=== PATIENT | female | born 1950 | race American Indian/Alaskan Native ===

== ENCOUNTER 2017-12-20 09:43 | Emergency (ER) | payer OTHER, MEDICARE ==
[2017-12-20 10:11] VITALS: BP 136/81
--- NOTE | 2017-12-20 11:49 | Emergency Department Report ---
Chief Complaint: Abdominal Pain Stated Complaint: ABD PAIN Time Seen by Provider: 12/20/17 11:42 - HPI History of Present Illness: 66-year-old female presents to the emergency department, sent in by her PCP Dr. Javier Argueta, to get an ultrasound done of her upper abdomen. The patient is having a few days of some abdominal pain that is worse towards the epigastrium. She had a urinalysis done yesterday and an EKG, which I saw and was read as normal. She is supposed to have blood work done on . She was not written for a prescription or order to get an outpatient or sound done but instead was told to come to the emergency department. No past medical history. No recent travel or sick contacts at home. - ROS Review of Systems: Positive for abdominal pain Negative for nausea, vomiting, fever, dysuria - Exam Vital Signs: Vital Signs 12/20/17 10:07 Temperature 98.4 F Pulse Rate 94 H Respiratory 18 Rate Blood Pressure 136/81 O2 Sat by Pulse 99 Oximetry Physical Exam: There is some reproducible epigastric tenderness to palpation. Otherwise abdomen is soft and nontoxic appearing. No guarding. MSE screening note: Focused history and physical exam performed. Due to findings the following was ordered: I have ordered a CBC, lipase, CMP and an upper abdominal ultrasound to be done. ED Disposition for MSE Condition: Stable Instructions: Abdominal Pain (ED) Referrals: PRIMARY CARE, [Primary Care Provider] - 3-5 Days
[2017-12-20 12:56] LABS: Basophils % (Auto) 0.7 % (0.0-1.8); Eosinophils # (Auto) 0.1 K/mm3 (0.0-0.4); Eosinophils % (Auto) 0.9 % (0.0-4.3); Hematocrit 42.3 % (30.3-42.9); Hemoglobin 14.3 gm/dl (10.1-14.3); Lymphocytes # (Auto) 1.9 K/mm3 (1.2-5.4); Lymphocytes % (Auto) 33.1 % (13.4-35.0); Mean Corpuscular HGB Conc 34 % (30-34); Mean Corpuscular Hemoglobin 31 pg (28-32); Mean Corpuscular Volume 92 fl (79-97); Monocytes # (Auto) 0.5 K/mm3 (0.0-0.8); Monocytes % (Auto) 7.9 % (0.0-7.3); Platelet Count 249 K/mm3 (140-440); Red Blood Count 4.61 M/mm3 (3.65-5.03); Red Cell Distribution Width 13.7 % (13.2-15.2)
--- NOTE | 2017-12-20 12:59 | Ultrasound Report ---
ULTRASOUND ABDOMEN LIMITED INDICATION: Upper abdominal pain. COMPARISON: None similar. FINDINGS: Right upper quadrant ultrasound demonstrates a 4.1 x 3.7 cm right hepatic echogenic lesion as image 15, likely a hemangioma. No biliary dilatation. Preserved hepatic contours. Slight hepatic coarsening not entirely excluded. No gallstones or pericholecystic fluid, to the extent assessed, though patient not NPO with gallbladder appearing contracted. Gallbladder wall thickness is 1.2 mm. Negative sonographic Mccain's sign. Common bile duct is 2.9 mm. Imaged pancreas, nonaneurysmal abdominal aorta and IVC appear within normal limits. No hydronephrosis with right kidney estimated at 10.5 x 5.1 x 4.8 cm and cortical thickness of 0.9 cm. Top normal right renal cortical echogenicity. CONCLUSION: Contracted gallbladder with approximately 4 cm hepatic hemangioma, slight hepatic coarsening and top normal right renal cortical echogenicity suspected sonographically, as described. Please correlate. Thank you for the opportunity to participate in this patient's care.
[2017-12-20 13:13] LABS: Alanine Aminotransferase 12 units/L (7-56); BUN/Creatinine Ratio 23; Blood Urea Nitrogen 16 mg/dL (7-17); Calcium 9.9 mg/dL (8.4-10.2); Hemolysis Index 82; Lipase 46 units/L (13-60)
--- NOTE | 2017-12-20 13:56 | Emergency Department Report ---
ED Abdominal Pain HPI - General Chief Complaint: Abdominal Pain Stated Complaint: ABD PAIN Time Seen by Provider: 12/20/17 11:42 Source: patient Mode of arrival: Ambulatory Limitations: No Limitations - History of Present Illness Initial Comments: This is a 66-year-old female nontoxic, well nourished in appearance, no acute signs of distress presents to the ED with c/o of epigastric abdominal pain. Patient stated she was seen by Javier Nuno her PCP and was sent to the ED for a ultrasound testing to be done. Patient denies any radiation of pain. Patient stated it is only occurs and aggravated at night time when laying down. Patient denies any nausea, vomiting, chest pain, shortness of breathe, fever, chills, headache, back pain, or urinary symptoms. Patient denies any allergies or PMH. Denies any recent travels. MD Complaint: abdominal pain Location: epigastric Radiation: none Migration to: no migration Severity: mild Severity scale (0 -10): 8 Quality: aching Consistency: constant Improves With: nothing Worsens With: nothing Associated Symptoms: denies: nausea, vomiting, diarrhea, fever, chills, constipation, dysuria, hematemesis, hematochezia, melena, hematuria, anorexia, syncope - Related Data Home Medications Medication Instructions Recorded Confirmed Last Taken Potassium 10 mg PO QDAY 03/26/14 12/23/14 03/25/14 21:00 Triamter/Hctz 37.5-25 mg 1 tab PO QDAY 03/26/14 12/22/14 03/25/14 21:00 [Maxzide-25] Amoxicillin 500 mg PO BID 12/22/14 12/22/14 Unknown Meclizine HCl [Antivert] 25 mg PO TID PRN 12/22/14 12/22/14 Unknown Previous Rx's Medication Instructions Recorded Last Taken Type Ibuprofen [Motrin] 600 mg PO Q8H PRN #30 tablet 12/20/17 Unknown Rx Allergies Allergy/AdvReac Type Severity Reaction Status Date / Time No Known Allergies Allergy Verified 12/22/14 19:04 ED Review of Systems ROS: Stated complaint: ABD PAIN Other details as noted in HPI Constitutional: denies: chills, fever Eyes: denies: eye pain, eye discharge, vision change ENT: denies: ear pain, throat pain Respiratory: denies: cough, shortness of breath, wheezing Cardiovascular: denies: chest pain, palpitations Endocrine: no symptoms reported Gastrointestinal: abdominal pain. denies: nausea, diarrhea Genitourinary: denies: urgency, dysuria, discharge Musculoskeletal: denies: back pain, joint swelling, arthralgia Skin: denies: rash, lesions Neurological: denies: headache, weakness, paresthesias Psychiatric: denies: anxiety, depression Hematological/Lymphatic: denies: easy bleeding, easy bruising ED Past Medical Hx - Past Medical History Previous Medical History?: Yes Hx Hypertension: Yes - Surgical History Past Surgical History?: Yes Additional Surgical History: PARTIAL HYSTERECTOMY - Social History Smoking Status: Never Smoker Substance Use Type: None - Medications Home Medications: Home Medications Medication Instructions Recorded Confirmed Last Taken Type Potassium 10 mg PO QDAY 03/26/14 12/23/14 03/25/14 21:00 History Triamter/Hctz 37.5-25 mg 1 tab PO QDAY 03/26/14 12/22/14 03/25/14 21:00 History [Maxzide-25] Amoxicillin 500 mg PO BID 12/22/14 12/22/14 Unknown History Meclizine HCl [Antivert] 25 mg PO TID PRN 12/22/14 12/22/14 Unknown History Ibuprofen [Motrin] 600 mg PO Q8H PRN #30 tablet 12/20/17 Unknown Rx ED Physical Exam - General Limitations: No Limitations General appearance: alert, in no apparent distress - Head Head exam: Present: atraumatic, normocephalic - Eye Eye exam: Present: normal appearance Pupils: Present: normal accommodation - ENT ENT exam: Present: normal exam, mucous membranes moist - Neck Neck exam: Present: normal inspection, full ROM - Respiratory Respiratory exam: Present: normal lung sounds bilaterally. Absent: respiratory distress, wheezes, rales, rhonchi, stridor, chest wall tenderness, accessory muscle use, decreased breath sounds, prolonged expiratory - Cardiovascular Cardiovascular Exam: Present: regular rate, normal rhythm, normal heart sounds. Absent: irregular rhythm, systolic murmur, diastolic murmur, rubs, gallop - GI/Abdominal GI/Abdominal exam: Present: soft, normal bowel sounds. Absent: distended, tenderness, guarding, rebound, rigid, diminished bowel sounds - Expanded GI/Abdominal Exam Expanded GI/Abdominal exam: Absent: psoas sign, obturator sign, heel tap sign, Mccain's sign, Rovsing's sign, tenderness at Mcburney's Point, ascites - Rectal Rectal exam: Present: deferred - Extremities Exam Extremities exam: Present: normal inspection, full ROM, normal capillary refill - Back Exam Back exam: Present: normal inspection, full ROM - Neurological Exam Neurological exam: Present: alert, oriented X3, normal gait - Psychiatric Psychiatric exam: Present: normal affect, normal mood - Skin Skin exam: Present: warm, dry, intact, normal color. Absent: rash ED Course Vital Signs 12/20/17 10:07 Temperature 98.4 F Pulse Rate 94 H Respiratory 18 Rate Blood Pressure 136/81 O2 Sat by Pulse 99 Oximetry - Reevaluation(s) Reevaluation #1: 12/20/17 14:07 Patient is speaking in full sentences with no signs of distress noted. - Consultations Consultation #1: 12/20/17 14:07 Patient has been consulted with Dr. Coy about patient history, physical exam, and labs/Us report and examined and screened patient and agrees to ED plan of care and discharge plan of care. ED Medical Decision Making - Lab Data Result diagrams: 12/20/17 12:27 12/20/17 12:27 - Medical Decision Making This is a 29-year-old female that presents with abdominal pain. Patient is stable and was examined by me. Upon exam, negative abdominal tenderness. Negative signs of symptoms of appendicitis. Labs obtained. UA obtained. US of abdomen obtained and dictated by the radiologist. Patient is notified of the report with no questions noted by the patient. Vital signs are stable prior to discharge. EKG normal sinus rhythm. Negative troponin. Patient was notified of strict precautions of appendicitis symptoms and to return to the ED if symptoms occurs as soon as possible. Patient was also instructed to Follow-up with a primary care doctor in 3-5 days or if symptoms worsen and continue return to emergency room as soon as possible. At time of discharge, the patient does not seem toxic or ill in appearance. No acute signs of distress noted. Patient agrees to discharge treatment plan of care. No further questions noted by the patient. Critical care attestation.: If time is entered above; I have spent that time in minutes in the direct care of this critically ill patient, excluding procedure time. ED Disposition Clinical Impression: Abdominal pain Qualifiers: Abdominal location: epigastric Qualified Code(s): R10.13 - Epigastric pain Disposition: TO HOME OR SELFCARE Is pt being admited?: No Does the pt Need Aspirin: No Condition: Stable Instructions: Abdominal Pain (ED) Additional Instructions: Follow-up with a primary care doctor in 3-5 days or if symptoms worsen and continue return to emergency room as soon as possible. Prescriptions: Ibuprofen [Motrin] 600 mg PO Q8H PRN #30 tablet PRN Reason: Pain Referrals: PRIMARY CARE, [Primary Care Provider] - 3-5 Days AYESHA FLEMING MD [Staff Physician] - 3-5 Days [facility] [Outside] - 3-5 Days [facility] [Outside] - 3-5 Days Forms: Work/School Release Form(ED)
== END 2017-12-20 14:25 | disposition home or self-care (01) ==
LOC: ED 09:43
DX: R10.13 Epigastric pain (principal); I10 Essential (primary) hypertension
CPT/HCPCS: 36415; 76705; 80053; 83690; 84484; 85025; 93005; 93010; 99284